=== PATIENT | female | born 1990 | race Caucasian/White ===

== ENCOUNTER 2019-02-05 15:14 | Outpatient (CLI) | payer OTHER ==
[2019-02-05 15:32] VITALS: BP 110/75
--- NOTE | 2019-02-09 22:06 | PROCEDURE REPORT ---
- HPI Diagnosis/Indication for NST: Polyhydramnios Current EDU 03/17/19 Gestation 34 Weeks and 2 Days 1 Para 0 Vital Signs Temperature 98.1 F 02/05/19 15:23 Heart Rate 90 02/05/19 15:23 Respiratory Rate 17 02/05/19 15:23 Blood Pressure 110/75 02/05/19 15:23 O2 Saturation 100 02/05/19 15:23 Temperature 98.1 F 02/05/19 15:23 Heart Rate 90 02/05/19 15:23 Respiratory Rate 17 02/05/19 15:23 Blood Pressure 110/75 02/05/19 15:23 O2 Saturation 100 02/05/19 15:23 - NST Procedure NST Procedure Start Date 02/05/19 Start Time 15:28 Stop Time 15:54 Vibroacoustic Stimulation Used No Patient States Movement Yes EFM 115 mod thang 15x15 accels no decels TOCO: quiet - Results and Plan Findings/Impression: 28 yo at 34w1d wth polyhydramnios Cat I tracing Warning signs reviewed Cont twice weekly NST and weekly AF as per primary OB
== END 2019-02-05 16:00 | disposition home or self-care (01) ==
LOC: WFO 15:14 → FBP 15:20 → WFO 16:00
PROVIDERS: ATTEND Obstetrics & Gynecology
DX: O40.3XX0 Polyhydramnios, third trimester, not applicable or unspecified (principal); Z3A.34 34 weeks gestation of pregnancy
CPT/HCPCS: 59025

== ENCOUNTER 2019-02-17 20:55 | Outpatient (CLI) | payer OTHER ==
[2019-02-17 21:09] VITALS: BP 130/86
[2019-02-17 22:29] LABS: BILIRUBIN,URINE NEGATIVE (NEGATIVE); GLUCOSE, URINE (UA) NEGATIVE (NEGATIVE); KETONES,URINE (UA) TRACE mg/dL (NEGATIVE); LEUKOCYTE ESTERASE, URINE NEGATIVE (NEGATIVE); NITRITE,URINE NEGATIVE (NEGATIVE); OCCULT BLOOD,URINE NEGATIVE (NEGATIVE); PH,URINE 5.5 PH (5.0-7.5); PROTEIN,URINE NEGATIVE (NEGATIVE); UROBILINOGEN,URINE 0.2 (NORMAL) E.U./dL (NORMAL)
[2019-02-17 22:31] LABS: CLARITY,URINE CLEAR (CLEAR)
[2019-02-17] MEDS ORDERED: BETAMETHASONE 30 MG/5 ML VIAL IM ONE (23:54)
[2019-02-18 00:16] LABS: CANDIDA GROUP DNA NEGATIVE (NEGATIVE); CANDIDA KRUSEI DNA NEGATIVE (NEGATIVE); TRICHOMONAS VAGINALIS DNA NEGATIVE (NEGATIVE)
[2019-02-18] MEDS ORDERED: BETAMETHASONE 30 MG/5 ML VIAL ONE (00:20)
[2019-02-18 01:23] LABS: TRICHOMONAS VAGINALIS DNA NEGATIVE (NEGATIVE)
--- NOTE | 2019-02-23 22:37 | PROCEDURE REPORT ---
- HPI Diagnosis/Indication for NST: Polyhydramnios Current EDU 03/17/19 Gestation 36 Weeks and 0 Days 1 Para 0 Vital Signs Temperature 98.2 F 02/17/19 21:06 Heart Rate 120 H 02/17/19 21:06 Respiratory Rate 16 02/17/19 21:06 Blood Pressure 130/86 H 02/17/19 21:06 O2 Saturation 99 02/17/19 21:06 Temperature 98.2 F 02/17/19 21:06 Heart Rate 120 H 02/17/19 21:06 Respiratory Rate 16 02/17/19 21:06 Blood Pressure 130/86 H 02/17/19 21:06 O2 Saturation 99 02/17/19 21:06 - NST Procedure NST Procedure Start Time 15:28 Stop Time 15:54 EFM 115 moderate variability 15 x 15 accelerations no decelerations [place]: irritable - Results and Plan Findings/Impression: 28-year-old G1, P0 at 36 weeks and 1 day estimated gestational age here for NST for polyhydramnios Category 1 tracing Continue with twice-weekly NST and weekly HAWK as per primary OB plan. Discharged home
== END 2019-02-18 00:31 | disposition home or self-care (01) ==
LOC: WFO 20:55 → FBP 20:57 → WFO 02-18 00:31
PROVIDERS: ATTEND Obstetrics & Gynecology
DX: O40.3XX0 Polyhydramnios, third trimester, not applicable or unspecified (principal); Z3A.36 36 weeks gestation of pregnancy
CPT/HCPCS: 81001; 81003; 82731; 87081; 87086; 87491; 87591; 87661; 87797; 87801; 96372; 99214

== ENCOUNTER 2019-02-19 09:54 | Outpatient (CLI) | payer OTHER ==
[2019-02-19 10:08] VITALS: BP 97/66
--- NOTE | 2019-03-12 11:19 | PROCEDURE REPORT ---
- HPI Diagnosis/Indication for NST: Polyhydramnios Current EDU 03/17/19 Gestation 36 Weeks and 2 Days 1 Para 0 Vital Signs Temperature 36.9 C 02/19/19 10:06 Heart Rate 93 02/19/19 10:06 Respiratory Rate 18 02/19/19 10:06 Blood Pressure 97/66 02/19/19 10:06 O2 Saturation 100 02/19/19 10:06 Temperature 36.9 C 02/19/19 10:06 Heart Rate 93 02/19/19 10:06 Respiratory Rate 18 02/19/19 10:06 Blood Pressure 97/66 02/19/19 10:06 O2 Saturation 100 02/19/19 10:06 - NST Procedure NST Procedure Start Date 02/19/19 Start Time 10:05 Stop Time 10:32 Vibroacoustic Stimulation Used No Patient States Movement Yes - Results and Plan Findings/Impression: reactive NST Plan: followup NSTweekly
== END 2019-02-19 10:40 | disposition home or self-care (01) ==
LOC: WFO 09:54 → FBP 09:59 → WFO 10:40
PROVIDERS: ATTEND Obstetrics & Gynecology
DX: O40.3XX0 Polyhydramnios, third trimester, not applicable or unspecified (principal); Z3A.36 36 weeks gestation of pregnancy
CPT/HCPCS: 59025

== ENCOUNTER 2019-02-24 13:35 | Outpatient (CLI) | payer OTHER ==
[2019-02-24 13:59] VITALS: BP 107/81
--- NOTE | 2019-03-05 21:53 | PROCEDURE REPORT ---
- HPI Current EDU 03/17/19 Gestation 37 Weeks and 0 Days 1 Para 0 Vital Signs Temperature 37 C 02/24/19 13:56 Heart Rate 108 H 02/24/19 13:56 Respiratory Rate 16 02/24/19 13:56 Blood Pressure 107/81 H 02/24/19 13:56 O2 Saturation 100 02/24/19 13:56 Temperature 37 C 02/24/19 13:56 Heart Rate 108 H 02/24/19 13:56 Respiratory Rate 16 02/24/19 13:56 Blood Pressure 107/81 H 02/24/19 13:56 O2 Saturation 100 02/24/19 13:56 - NST Procedure NST Procedure Start Date 02/24/19 Start Time 13:50 Stop Time 14:20 Vibroacoustic Stimulation Used No Patient States Movement Yes - Results and Plan Findings/Impression: reactve NST polyhydramnios Plan: Followup PRN
== END 2019-02-24 14:20 | disposition home or self-care (01) ==
LOC: WFO 13:35 → FBP 13:40 → WFO 14:20
PROVIDERS: ATTEND Obstetrics & Gynecology
DX: O40.3XX0 Polyhydramnios, third trimester, not applicable or unspecified (principal); Z3A.37 37 weeks gestation of pregnancy
CPT/HCPCS: 59025

== ENCOUNTER 2019-03-03 13:54 | Outpatient (CLI) | payer OTHER ==
[2019-03-03 14:16] VITALS: BP 106/69
--- NOTE | 2019-03-12 11:23 | PROCEDURE REPORT ---
- HPI Diagnosis/Indication for NST: Polyhydramnios (reactive NST repeat 1 week.) Current EDU 03/17/19 Gestation 38 Weeks and 0 Days 1 Para 0 Vital Signs Temperature 37 C 03/03/19 14:02 Heart Rate 95 03/03/19 14:02 Respiratory Rate 20 03/03/19 14:02 Blood Pressure 106/69 03/03/19 14:02 O2 Saturation 100 03/03/19 14:02 Temperature 37 C 03/03/19 14:02 Heart Rate 95 03/03/19 14:02 Respiratory Rate 03/03/19 14:02 Blood Pressure 106/69 03/03/19 14:02 O2 Saturation 100 03/03/19 14:02 - NST Procedure NST Procedure Start Date 03/03/19 Start Time 14:02 Stop Time 14:26 Vibroacoustic Stimulation Used No Patient States Movement Yes reactive
== END 2019-03-03 14:29 | disposition home or self-care (01) ==
LOC: WFO 13:54 → FBP 13:56 → WFO 14:29
PROVIDERS: ATTEND Obstetrics & Gynecology
DX: O40.3XX0 Polyhydramnios, third trimester, not applicable or unspecified (principal); Z3A.38 38 weeks gestation of pregnancy
CPT/HCPCS: 59025

== ENCOUNTER 2019-03-09 14:02 | Outpatient (CLI) | payer OTHER ==
[2019-03-09 14:26] VITALS: BP 100/70
--- NOTE | 2019-03-09 15:08 | PROCEDURE REPORT ---
- HPI Current EDU 03/17/19 Gestation 38 Weeks and 6 Days 1 Para 0 Vital Signs Temperature 36.9 C 03/09/19 14:23 Heart Rate 112 H 03/09/19 14:23 Respiratory Rate 15 03/09/19 14:23 Blood Pressure 100/70 03/09/19 14:23 O2 Saturation 98 03/09/19 14:23 Temperature 36.9 C 03/09/19 14:23 Heart Rate 112 H 03/09/19 14:23 Respiratory Rate 15 03/09/19 14:23 Blood Pressure 100/70 03/09/19 14:23 O2 Saturation 98 03/09/19 14:23 The patient comes in today for her nonstress test for polyhydramnios. She is without any Complaints. - NST Procedure NST Procedure Start Date 03/09/19 Start Time 14:15 Stop Time 14:26 Vibroacoustic Stimulation Used No Patient States Movement Yes The NST is reactive. This test is read on 03/09/2019. - Results and Plan Findings/Impression: Intrauterine at 38 weeks 6 days gestation Polyhydramnios Plan the patient is being discharged home. She is going to follow-up in the office later today.
== END 2019-03-09 14:55 | disposition home or self-care (01) ==
LOC: WFO 14:02 → FBP 14:06 → WFO 14:55
PROVIDERS: ATTEND Obstetrics & Gynecology
DX: O40.3XX0 Polyhydramnios, third trimester, not applicable or unspecified (principal); Z3A.38 38 weeks gestation of pregnancy
CPT/HCPCS: 59025

== ENCOUNTER 2019-03-13 13:50 | Inpatient (IN) | payer OTHER ==
--- NOTE | 2019-03-13 15:15 | HISTORY & PHYSICAL EXAMINATION ---
Admit History - Visit Reason Visit Reason: Other (Polyhydramnios) - Smoking Status: Never smoker - Mother's Labs Mother's Blood Type: positive: O Mother's RH: positive: Positive GBS: positive: Group B Strep Positive Rubella Status: positive: Immune - Other Maternal History Other Maternal History: Chief complaint intrauterine at 39 weeks 3 days gestation to polyhydramnios History chief complaint: The patient is a well-developed, well-nourished, 28-year-old white female who is 1 para 0. She has an GUERLINE of 03/17/2019 making her approximately 39 weeks and 3 days gestation.She transferred [facility] 02[facility]2019 at approximately 34 weeks gestation. She was known to have polyhydramnios. She has been followed with serial NSTsAll of which have been within normal limits. Because of the polyhydramnios was felt that she should be induced between 39 and 40 weeks gestation. We reviewed the risks, benefits, alternatives and complications of the procedure. Questions encouraged and answered, she understood and wished to do this.Her consents were then signed. She is blood type O+, she is rubella immune and GBS positive. She will need antibiotic prophylaxis when she goes into active labor.She denies any self or family history of breast disease and does plan to breast-feed. Meds/Allgy - Home Medications Home Medications: Ambulatory Orders Medication Instructions Recorded Confirmed Hydrocodone/Acetaminophen 1 each PO Q6H PRN #10 tablet 01/10/15 [Hydrocodon-Acetaminophen 5-325] - Allergies Allergies/Adverse Reactions: Allergies Allergy/AdvReac Type Severity Reaction Status Date / Time No Known Drug Allergies Allergy Verified 12/21/14 08:19 Review of Systems - Constitutional Constitutional: denies: Fatigue, Fever, Chills, Malaise, Weakness, Poor appetite, Diaphoresis - Eyes Eyes: denies: Pain, Irritation, Amaurosis, Blurred vision, Field loss, Vision loss - Ears, Nose & Throat Ears, Nose & Throat: denies: Ear pain, Hearing loss, Hearing aids, Tinnitus, Vertigo, Nasal pain, Nasal discharge, Nosebleeds, Nasal obstruction, Nasal congestion, Dentures, Sore throat, Hoarseness, Mouth lesions - Cardiovascular Cariovascular: denies: Irregular heart rate, Palpitations, Chest pain, Edema, Lightheadedness, Syncope - Respiratory Respiratory: denies: Cough, Sputum production, Wheezing, Snoring, Hemoptysis, Orthopnea, SOB at rest - Gastrointestinal Gastrointestinal: denies: Abdominal pain, Abdominal distention, Constipation, Diarrhea, Change in bowel habits, Rectal bleeding, Black stools, Nausea, Vomiting - Genitourinary Genitourinary: denies: Dysuria, Frequency, Urgency, Hematuria, Incontinence, Flank pain - Musculoskeletal Musculoskeletal: denies: Muscle pain, Muscle aches, Stiffness, Muscle weakness, Gout - Integumentary Integumentary: denies: Rash, Pruritis, Lesions, Dryness, Lumps, Acne, Pigment changes, Nail changes, Hair changes - Neurological Neurological: denies: General weakness, Focal weakness, Headache, Numbness, Memory problems, Seizures - Psychiatric Psychiatric: denies: Depression, Anxiety, Suicidal, Delusions, Hallucinations - Endocrine Endocrine: denies: Polyuria, Polydypsia, Polyphagia, Intolerance to cold, Intolerance to heat - Hematologic/Lymphatic Hematologic/Lymphatic: denies: Anemia, Bruising, Petechiae, Blood clots, Lymphadenopathy Plan for Labor - Plan For Labor Plan for Labor: Impression: 1. Intrauterine at 39 weeks 3 days gestation 2. Polyhydramnios Plan: The patient is being admitted for Cytotec induction of labor. Since she is GBS positive when she is in active labor we will start antibiotic prophylaxis. We will continue to follow her closely.
[2019-03-13 15:43] LABS: BASOPHILS % (AUTO) 0.3 %; EOSINOPHILS % (AUTO) 0.2 %; HGB - HEMOGLOBIN 10.5 g/dL (12.0-16.0); LYMPHOCYTES % (AUTO) 15.9 %; MEAN CORPUSCULAR HEMOGLOBIN 28.6 pg (27.0-31.0); MEAN CORPUSCULAR HGB CONC 32.9 g/dL (32.0-36.0); MEAN CORPUSCULAR VOLUME 86.9 fL (81.0-99.0); MEAN PLATELET VOLUME 11.3 fL (7.9-10.8); MONOCYTES # (AUTO) 0.8 10^3/uL (0.0-1.0); MONOCYTES % (AUTO) 6.3 %; NEUTROPHILS # (AUTO) 9.6 10^3/uL (1.5-6.6); NEUTROPHILS % (AUTO) 76.3 %; PLT - PLATELET COUNT 288 10^3/uL (130-450); RED BLOOD COUNT 3.67 10^6/uL (4.20-5.40); RED CELL DISTRIBUTION WIDTH 12.9 % (12.0-15.0); WHITE BLOOD COUNT 12.6 x10^3/uL (4.8-10.8)
[2019-03-13] MEDS: miSOPROStol 100 MCG TABLET BC SCH ×2 (15:48→19:48)
[2019-03-13] MEDS ORDERED: SODIUM CHLORIDE FLUSH 0.9% 10 ML SYRINGE IVP SCH (17:00)
[2019-03-13] MEDS: SODIUM CHLORIDE FLUSH 0.9% 10 ML SYRINGE IVP PRN (21:19)
--- NOTE | 2019-03-14 00:40 | Ultrasound Report ---
Reason: Polyhydramnios, suspected macrosomia Procedure Date: 03/12/2019 Accession Number: [id number] / [id number] Procedure: US - OB F/U or Repeat CPT Code: FULL RESULT: EXAM: FOLLOW-UP OBSTETRICAL ULTRASOUND EXAM DATE: 03/13/2019 11:28 PM. CLINICAL HISTORY: Polyhydramnios, suspected macrosomia. COMPARISON: None. TECHNIQUE: Real-time sonographic evaluation of the fetus performed by the hay stacker. Multiple service support representative static images were saved for review. DATING: Established EGA 39 weeks 3 days with GUERLINE 03/17/2019 based on LMP. EGA 39 weeks 4 days with GUERLINE 03/16/2019 based on current ultrasound. GENERAL EVALUATION [place] . Cardiac activity: 127 bpm. movement: Visualized. Presentation: Cephalic. Placenta: Posterior fundal position. Amniotic fluid: Normal. HAWK 26.5 cm. MVP 7.5 cm. BIOMETRY Bi-Parietal Diameter (BPD): 9.3 cm, 38 weeks 0 days Head Circumference (HC): 35.6 cm, 41 weeks 5 days Abdominal Circumference (AC): 36.7 cm, 40 weeks 4 days Femur Length (FL): 7.5 cm, 38 weeks 1 day Estimated Weight: 3919 g, 81.7 percentile.. IMPRESSION: 1. [place] live intrauterine with gestational age 39 weeks 3 days based on current ultrasound. 2. Estimated weight is within expected limits for assigned dating. 3. Polyhydramnios. RADIA
[2019-03-14] MEDS: miSOPROStol 100 MCG TABLET BC SCH ×2 (01:15→12:39)
[2019-03-14] MEDS: LACTATED RINGERS 1,000 ML IV SCH ×3 (04:45→21:36)
--- NOTE | 2019-03-14 09:43 | PROVIDER PROGRESS NOTE ---
Labor Progress Note - Labor Progress Note Labor Progress Note/Additional Text: The patient has had 3 doses of misoprostol.She is gabriel moderately every 2 to 3 minutes. There is a category 1 EFM noted. A check of her cervix this morning reveals it to be mid anterior, 2 cm dilated, -2, 50%.She is making expected changes. We will start her antibiotic prophylaxis at this time.We will recheck her in a few hours and continue to follow her closely.It is of note that her ultrasound last night revealed her HAWK to be 26.5. The estimated body weight was 3919 g which places the fetus at the 81.7 percentile.
[2019-03-14] MEDS ORDERED: AMPICILLIN 2 GM in SODIUM CHLORIDE 0.9% MINIBAG 100 ML IV SCH (10:00)
[2019-03-14] MEDS ORDERED: SODIUM CHLORIDE FLUSH 0.9% 10 ML SYRINGE ONE (10:11)
--- NOTE | 2019-03-14 12:40 | PROVIDER PROGRESS NOTE ---
Labor Progress Note - Labor Progress Note Labor Progress Note/Additional Text: The patient cervix now remains unchanged from her last exam.Her contractions though moderate to firm are now spacing out. We will therefore administer another dose of misoprostol.A category 1 EFM is still noted.Once her cervix opens up enough to safely employ an amniotomy we will try to accomplish that.We will continue to follow her closely.
[2019-03-14] MEDS: AMPICILLIN 1 GM in SODIUM CHLORIDE 0.9% MINIBAG 100 ML IV SCH ×3 (14:16→22:45)
[2019-03-14] MEDS: SODIUM CHLORIDE FLUSH 0.9% 10 ML SYRINGE IVP PRN (14:17)
--- NOTE | 2019-03-14 16:18 | PROVIDER PROGRESS NOTE ---
Labor Progress Note - Labor Progress Note Labor Progress Note/Additional Text: The patient cervix is now 2 to 3 cm. It is soft and it is mid anterior. It is now 75% effaced the fetus is at a -2 to -1 station. There is a category 1 EFM noted. She had been given an additional dose of misoprostol around the noon hour. Her contractions again have picked up. She is now gabriel every 2 to 3 minutes they are firm. An amniotomy was performed with return of a large amount of clear fluid. We will continue to follow her closely.
[2019-03-14] MEDS ORDERED: SODIUM CHLORIDE FLUSH 0.9% 10 ML SYRINGE IVP PRN (16:21)
[2019-03-14] MEDS ORDERED: NALBUPHINE 10 MG/ML AMP IVP PRN ×2 (16:25→20:09)
[2019-03-14] MEDS ORDERED: LACTATED RINGERS 1,000 ML IV SCH (17:00)
[2019-03-14] MEDS ORDERED: SODIUM CHLORIDE FLUSH 0.9% 10 ML SYRINGE IVP SCH (17:00)
[2019-03-14] MEDS ORDERED: fentaNYL 250 MCG/5 ML VIAL ONE (19:34)
[2019-03-14] MEDS ORDERED: ROPIVACAINE 0.2% 200 MG/100 ML BAG EP ONE (19:35)
[2019-03-14] MEDS ORDERED: fentaNYL 100 MCG/2 ML VIAL ONE (19:37)
[2019-03-14] MEDS ORDERED: ROPIVACAINE 0.2% 200 MG/100 ML BAG EP PRN (20:07)
[2019-03-14] MEDS ORDERED: METOCLOPRAMIDE 10 MG/2 ML VIAL IVP PRN (20:09)
[2019-03-14] MEDS ORDERED: ePHEDrine 50 MG/ML VIAL IVP PRN (20:09)
[2019-03-14] MEDS ORDERED: diphenhydrAMINE INJ 50 MG/ML VIAL IVP PRN (20:09)
[2019-03-14] MEDS ORDERED: LACTATED RINGERS 500 ML IV ONE (20:09)
[2019-03-14] MEDS ORDERED: NALOXONE 0.4 MG/ML VIAL IVP PRN (20:09)
[2019-03-14] MEDS ORDERED: ONDANSETRON 4 MG/2 ML VIAL IVP PRN (20:09)
--- NOTE | 2019-03-14 20:13 | ANESTHESIA ---
Pre-Anesthesia VS, & Labs - Diagnosis Active labor - Procedure Continuous labor epidural Vital Signs: Temp Pulse Resp BP Pulse Ox 36.6 C 106 H 18 120/76 100 03/13/19 14:02 03/13/19 14:02 03/13/19 14:02 03/13/19 14:02 03/13/19 14:02 Height 5 ft 6 in Weight (kg) 80.739 kg Body Mass Index 22.6 - NPO Other (ice chips) - Is Patient ?: Yes - Lab Results Current Lab Results: Laboratory Tests 03/13/19 14:30: WBC 12.6 H, RBC 3.67 L, Hgb 10.5 L, Hct 31.9 L, MCV 86.9, MCH 28.6, MCHC 32.9, RDW 12.9, Plt Count 288, MPV 11.3 H, Neut # (Auto) 9.6 H, Lymph # (Auto) 2.0, [place] # (Auto) 0.8, Eos # (Auto) 0.0, Baso # (Auto) 0.0, Absolute Nucleated RBC 0.00, Nucleated RBC % 0.0 Fish Bones: 03/13/19 14:30 Home Medications and Allergies Active Medications Lactated Ringer's (Lr) 1,000 mls @ 100 mls/hr IV .Q10H [facility] Last Infusion: 03/14/19 08:22 Dose: 0 mls/hr Ampicillin Sodium 1 gm/ Sodium (Chloride) 100 mls @ 200 mls/hr IV Q4H [facility] Last Admin: 03/14/19 18:31 Dose: 200 mls/hr Ropivacaine (Naropin 0.2%) 200 mg in 100 mls @ 10 mls/hr EP PRN PRN PRN Reason: Analgesia Misoprostol (Cytotec) 50 mcg BC Q4H [facility] Last Admin: 03/14/19 12:39 Dose: 50 mcg Nalbuphine HCl (Nubain) 5 - 10 mg IVP Q2H PRN PRN Reason: PAIN Ondansetron HCl (Zofran Inj) 4 mg IVP Q4H PRN PRN Reason: Nausea / Vomiting Sodium Chloride (Normal Saline Flush 0.9%) 10 ml IVP 0100,0900,1700 [facility] Sodium Chloride (Normal Saline Flush 0.9%) 10 ml IVP PRN PRN PRN Reason: NEEDED PER PROVIDER ORDERS Last Admin: 03/14/19 14:17 Dose: 10 ml Allergies/Adverse Reactions: Allergies Allergy/AdvReac Type Severity Reaction Status Date / Time No Known Drug Allergies Allergy Verified 12/21/14 08:19 Anes History & Medical History - Anesthetic History Anesthesia Complications: reports: No previous complications Family history of Anesthesia Complications: Denies Family history of Malignant Hyperthermia: Denies - Medical History Cardiovascular: reports: None Pulmonary: reports: None Gastrointestinal: reports: None Urinary: reports: None Neuro: reports: None Musculoskeletal: reports: None Endocrine/Autoimmune: reports: None Blood Disorders: reports: None Skin: reports: None Smoking Status: Never smoker Psychosocial: reports: No issues indicated Exam General: Alert, Oriented x3, Moderate distress Dental: WNL Mouth Opening: Greater than 4 Fingerbreadths Neck Mobility: Normal Mallampati classification: II Thyromental Distance: greater than 6 cm Respiratory: Lungs clear Cognitive Status: Within normal limits Plan Anesthesia Type: Epidural Consent for Procedure(s) Verified and Reviewed: Yes Code Status: Attempt Resuscitation ASA classification: 2-Mild systemic disease Is this case an emergency?: Yes
[2019-03-14] MEDS: ONDANSETRON 4 MG/2 ML VIAL IVP PRN (20:35)
[2019-03-14] MEDS ORDERED: OXYTOCIN/DEXTROSE 5 % 30 UNIT/500 ML BAG IV ONE (20:45)
--- NOTE | 2019-03-14 23:06 | PROVIDER PROGRESS NOTE ---
Labor Progress Note - Labor Progress Note Labor Progress Note/Additional Text: The patient cervix is now 9 cm is dilated. The fetus is at the 0 station. There is a bloody show now noted. A category 1 EFM is still appreciated. She has an epidural in place. She cannot feel any contractions nor move her legs. We will have anesthesia decrease the dose of epidural medication so that she can start just feeling the contractions so that she will be able to push with the contractions when she becomes complete.We will continue to follow her closely.
--- NOTE | 2019-03-14 23:27 | CONSULTATION NOTE ---
Consultation Report: Called in to adjust epidural rate, reduced from 10 to 7 ml/hr (new epidural solution using 0.2% ropi with 1 mcg/ml fentanyl). Patient dilated to 9 cm and unable to push.
[2019-03-15] MEDS: ONDANSETRON 4 MG/2 ML VIAL IVP PRN (00:19)
--- NOTE | 2019-03-15 02:02 | PROVIDER PROGRESS NOTE ---
Labor Progress Note - Labor Progress Note Labor Progress Note/Additional Text: The cervix is now complete with respect to dilatation. The fetus is at about a +2 station. There is still a small anterior lip noted, but this is easily moved off of the baby's head. A category 1 EFM is still noted. We will start with exp ulsatory efforts. We will continue to follow her closely.
[2019-03-15] MEDS ORDERED: OXYTOCIN/DEXTROSE 5 % 30 UNIT/500 ML BAG IV SCH (02:10)
[2019-03-15] MEDS ORDERED: CALCIUM CARBONATE CHEW 500 MG TABLET PO PRN (02:15)
--- NOTE | 2019-03-15 02:31 | PROVIDER PROGRESS NOTE ---
Labor Progress Note - Labor Progress Note Labor Progress Note/Additional Text: The patient is now been pushing for 1 hour. There is still a category 1 strip noted. Her contractions however have now spaced out and become moderate at most. We are starting some Pitocin augmentation. We will wait for her to resume pushing once the contraction strength has increased as well as their frequency.
[2019-03-15] MEDS: AMPICILLIN 1 GM in SODIUM CHLORIDE 0.9% MINIBAG 100 ML IV SCH (02:50)
[2019-03-15] MEDS ORDERED: ROPIVACAINE 0.2% 200 MG/100 ML BAG EP ONE (03:46)
[2019-03-15] MEDS: LACTATED RINGERS 1,000 ML IV SCH (04:24)
[2019-03-15] MEDS ORDERED: LIDOCAINE-MPF 1% 30 ML VIAL ONE (05:03)
[2019-03-15] MEDS ORDERED: LIDOCAINE 1% 50 ML MDV SUBQ ONE (05:05)
[2019-03-15] MEDS ORDERED: OXYTOCIN/DEXTROSE 5 % 30 UNIT/500 ML BAG IV PRN (05:11)
[2019-03-15] MEDS ORDERED: LIDOCAINE 1%-EPI 1:100000 20 ML MDV ONE (05:13)
[2019-03-15] MEDS ORDERED: HYDROCORTISONE 1% CREAM 28 GM TUBE PR PRN (05:26)
[2019-03-15] MEDS ORDERED: HYDROcod/ACETAM 5/325 MG TABLET PO PRN (05:26)
[2019-03-15] MEDS ORDERED: WITCH HAZEL/GLYCERIN 1 PAD TOP PRN (05:26)
--- NOTE | 2019-03-15 05:32 | DELIVERY NOTE ---
Delivery Note - Labor Labor: positive: Augmented by oxytocin, Other (Misoprostol induction) - Delivery Method Infant Delivery Method: positive: Spontaneous vaginal delivery - Cervical Ripening Method Cervical Ripening Method: positive: Misoprostil - Presentation Presentation: positive: Vertex, DIONICIO - left occiput anterior - Nuchal Cord Nuchal Cord: positive: Present, Reduced - Anesthetic Anesthetic: positive: Other (1% lidocaine with epinephrine) Volume: positive: 5cc - Amniotic Fluid Description Amniotic Fluid Description: positive: Clear - Episiotomy Type Episiotomy Type: positive: Midline - Suture Suture Type: positive: Chromic Suture Size: positive: 2-0 - Delivery Outcome Delivery Outcome: positive: Livebirth - [place] : positive: Bulb syringe, Stimulated, Warmed sex: positive: Male : Apgars 7 and 9 : 9 pounds 0.2 ounces 22 inches long - Cord Cord: positive: 3 vessels - Placenta Placenta: positive: Intact, Spontaneous - Estimated Blood Loss Estimated Blood Loss (in cc): 150 - Post Delivery Events Post Delivery Events: positive: No post delivery events - Delivery Comments (Free Text/Narrative) Delivery Comments (Free Text/Narrative): The patient came to [facility] late in the afternoon on 03/13/2019 for induction of labor. She was at 39 weeks and 4 days gestation. Her has been complicated with polyhydramnios. Late in the afternoon she was given a dose of misoprostol. She began some contractions. An ultrasound that night revealed amniotic fluid levels at just a little over 26 cm and estimated body weight was in the 81 percentile at a little over 3900 g.Throughout the night she was given a total total dose of 3 misoprostol's. She had come in with a closed cervix. By the a.m. her cervix was now 2 cm dilated 50% effaced and -2.She was given 1 more dose of misoprostol. By early afternoon her cervix was now 2 to 3 cm and 50% effaced and -2. An amniotomy was performed with return of a large amount of clear fluid. At that point she began having good contractions. She then followed a normal nulliparous labor curve and was actually found to be complete with respect to cervical dilatation at approximately 00 58 hours and began pushing at that time. Delivery summary: The patient initially began pushing at approximately 00 58 hours on 03/15/2019. She pushed for about an hour andThe contractions began spacing out and actually became moderate at most. A Pitocin drip was then started. Because the contractions really were inadequate and the patient was somewhat tired she was allowed to rest to wait for the contractions to increase in character and frequency. The Pitocin had to be increased to a total of 4 milliunits/min.At that point in time she was gabriel adequately. She again began with expulsatoryory efforts at approximately 04 30 hours. The fetus did become tachycardic into the 170s and then would drop again back down into normal ranges of 130s to 150s but then become tachycardic again.In approximately 0508 hrs. she delivered a viable male . This was done over a midline episiotomy. Upon delivery of the head a circum-nuchal cord x2 was noted and reduced. This was loose. The rest of the was then delivered with gentle traction and gentle expulsive Tory efforts. Upon full delivery the was somewhat floppy and was not crying and therefore the cord was doubly clamped and cut brought over to the warmer. The placenta was then delivered intact with 3 vessels at approximately 05 1100 hrs. on 03/15/2019. 30 units Pitocin IV drip were given. The uterus was actually gabriel out quite firmly. The cervix and vaginal vault were inspected and found to be intact. The episiotomy had originally been in enough size with 1% Lidocaine with epinephrine. It was now reapproximated in the usual fashion using 2-0 chromic suture and hemostasis followed. The is a viable male. After warming and stimulation he began to cry and move all of his limbs appropriately. He what he had Apgars of 7 and 9. He weighs 9 pounds 0.2 ounces and is 22 inches long.His parents have named him Bharathi Longoria.Both the and the patient were allowed to remain in the LDRP both in satisfactory condition. Estimated blood loss was 150 mL's.
[2019-03-15] MEDS ORDERED: LIDOCAINE 1%-EPI 1:100000 20 ML MDV SUBQ ONE (05:42)
[2019-03-15] MEDS: ACETAMINOPHEN 500 MG TABLET PO SCH ×3 (05:56→21:31)
[2019-03-15] MEDS: IBUPROFEN 600 MG TABLET PO SCH ×3 (05:57→19:59)
[2019-03-15] MEDS ORDERED: LACTATED RINGERS 1,000 ML IV SCH (06:00)
[2019-03-16] MEDS: IBUPROFEN 600 MG TABLET PO SCH ×2 (03:25→09:22)
[2019-03-16] MEDS: ACETAMINOPHEN 500 MG TABLET PO SCH (08:05)
--- NOTE | 2019-03-16 08:16 | PROVIDER PROGRESS NOTE ---
Subjective - Prog Note Date Prog Note Date: 03/16/19 Prog Note Time: 08:14 - Subjective Subjective: The patient is doing very well. She is without complaint. She is ambulating well and tolerating diet well. She is breast-feeding without difficulty. Lo stephen is light.She is anxious for discharge. Objective - Vital Signs/Intake & Output Vital Signs: Vital Signs x48h Temp Pulse Resp BP Pulse Ox 03/16/19 03:58 36.6 C 78 18 105/71 100 Intake & Output: Intake & Output 03/13/19 03/14/19 03/15/19 03/16/19 23:59 23:59 23:59 23:59 Intake Total 2761.667 3.017 Output Total 350 1500 Balance 2411.667 -1496.983 - Lab Results Fish Bones: 03/13/19 14:30 - Other Results/Comments Other Results/Comments: Laboratory Tests 03/13/19 14:30 WBC 12.6 H RBC 3.67 L Hgb 10.5 L Hct 31.9 L MCV 86.9 MCH 28.6 MCHC 32.9 RDW 12.9 Plt Count 288 MPV 11.3 H Neut # (Auto) 9.6 H Lymph # (Auto) 2.0 [place] # (Auto) 0.8 Eos # (Auto) 0.0 Baso # (Auto) 0.0 Absolute Nucleated RBC 0.00 Nucleated RBC % 0.0 Abdomen: The abdomen is soft, pliable and nontender. The uterus is firm and nontender 2 fingerbreadths below the umbilicus. Episiotomy: The episiotomy and is clean and dry. It is well up approximated w ithout any signs of infection. Assessment/Plan - Problem List (1) Polyhydramnios Impression: day #1: Stable Plan: It does appear that the patient is stable and doing well. She will be allowed to be discharged home. She was discharged home with written and verbal instructions which included/things as: 1. She is to forego any lifting, tampons, douching or intercourse 2. She is not to drive a car for the next 2 weeks 3. She is to call if she has temperatures greater than 100.4 or heavy vaginal bleeding 4. She we will continue to increase her fluids and continue her vitamins 5. She may use ibuprofen 600 mg p.o. 3 times daily as needed for cramping 6. As long she does well we will see in the first in 1 week for preliminary post check and in 6 weeks for full check. She will call sooner if she has problems.
[2019-03-16 08:28] VITALS: BP 115/67
--- NOTE | 2019-03-16 08:43 | DISCHARGE SUMMARY ---
Physician: Loc Armstrong DO DATE OF ADMISSION: 03/13/2019 DATE OF DISCHARGE: 03/16/2019 ADMITTING DIAGNOSES 1. Intrauterine at 39 weeks 3 days gestation. 2. Polyhydramnios. DISCHARGE DIAGNOSIS: Delivery at 39 weeks 5 days gestation. PROCEDURES PERFORMED 1. Misoprostol induction of labor with Pitocin augmentation. 2. Spontaneous assisted vaginal delivery. 3. Episiotomy with episiorrhaphy. LABORATORIES: Admit laboratories revealed WBCs of 12.6, RBCs of 3.67, hemoglobin 10.5, hematocrit 31.9 with 288 platelets. HOSPITAL COURSE: Patient was admitted in the afternoon of 03/13/2019 for induction of labor at 39 weeks' gestation due to polyhydramnios. Patient had a previous ultrasound revealing the fetus to be in the 98th percentile, and therefore another ultrasound was obtained, which revealed now the fetus to be in the 81st percentile and HAWK was at a little over 26. She was given misoprostol overnight. By the a.m. of 03/14/2019, her cervix was now dilated to 2 cm. She was given another dose of misoprostol. This was a total of 4 doses altogether. By the afternoon, her cervix was now 2-3 cm dilated, approximately 75% effaced and the fetus was in a -2 station. An amniotomy was performed at that time with return of clear fluid. At that point, she went into a good labor pattern and was found to be complete with respect to cervical dilatation at approximately 0058 hours on 03/15/2019. She went on to deliver a viable male weighing 9 pounds 0.2 ounces with Apgars of 7 and 9 at 1 and 5 minutes, respectively. They named him Bharathi Longoria. Estimated blood loss was approximately 150 mL. One is referred to the delivery note for full details. She recovered really very well throughout the day. She had delivered again early in the morning of 03/15/2019. On the a.m. of 03/16/2019, she was ambulating well, tolerating diet well. She was voiding without difficulty. She was without difficulty. She was asking for discharge. It was felt the patient was stable and could be safely discharged home. Her lochia was now light and the uterus was firm and nontender, 2 fingerbreadths below the umbilicus. The episiotomy was clean and dry and well approximated without any signs of infection. She was therefore discharged home with written and verbal instructions, which included such things as 1. She is to forego any lifting, tampons, douching or intercourse. 2. She is to report any temperatures greater than 100.4 or heavy vaginal bleeding. 3. She is not to drive a car for the next 2 weeks. 4. She is to continue her vitamins and increase her fluids. 5. She may use ibuprofen 600 mg p.o. t.i.d. for pain control. 6. She may take a shower or a tub bath. 7. As long as she does well, we will see her in the office in 1 week for an initial check and in 6 weeks for full check. She will call sooner if she has problems or questions. TD: 03/16/2019 08:28 [place]
--- NOTE | 2019-03-16 12:32 | Labor Flowsheet ---
Labor Flowsheet Datetime Report Generated by CPN: 03/16/2019 12:31 Datetime: 03/16/2019 08:14 VITAL SIGNS NBP Sys/Rupinder/Mean (mmHg): 115 : 67 : 78 Pulse: 77 LaborFlag: Antepartum Datetime: 03/15/2019 20:05 SpO2 (%): 100 Datetime: 03/15/2019 05:08 UTERINE ACTIVITY Monitor Mode: External Frequency (min): 1-2.5 Quality: Strong Duration (sec): 50-80 Pattern: Normal: <= 5 Contractions in 10 Minutes Resting Tone (Palpate): Relaxed ASSESSMENT A Monitor Mode: External US FHR Baseline Rate : 170 Variability: Moderate 6-25 bpm Accelerations: 15X15 Decelerations: Variable; Prolonged Category: Category II Datetime: 03/15/2019 05:00 TEACHING Instructional Method: Verbal Plan of Care: Plan of Care Discussed Labor/Induction: Pushing Methods Datetime: 03/15/2019 04:45 FHR Baseline Changes: Tachycardia Datetime: 03/15/2019 04:37 I/O Interventions: Crowder Discontinued Datetime: 03/15/2019 04:23 STAGE 2 Pushing: Coached on Pushing Pushing Position: Pushing Lithotomy Datetime: 03/15/2019 03:55 MEDICATIONS Pitocin (milliunits): Increased to @ 4 Datetime: 03/15/2019 03:26 Pain Assessment Comments: pt resting Datetime: 03/15/2019 02:52 Antibiotics: Ampicillin IV 1 Gm Datetime: 03/15/2019 02:28 Monitor Interventions for UA: [place] Adjusted Datetime: 03/15/2019 02:26 COMMUNICATION Communication: Provider at Bedside Provider Notified (Name): Dr. Nathaniel Communication Comments: Per provider, allow pt to labor down. Datetime: 03/15/2019 02:14 Patient Care Comments: pt vomitting Datetime: 03/15/2019 02:10 Temperature (C): 37.5 Datetime: 03/15/2019 02:07 PAIN Pain Scale: 0 Pain Presence: None/Denies Pain Type: N/A Datetime: 03/15/2019 02:00 MATERNAL ASSESSMENT Level of Consciousness: Fully Conscious Breath Sounds, Left: Clear and Equal Breath Sounds, Right: Clear and Equal Nausea/Vomiting: Present Datetime: 03/15/2019 01:03 Pushing Progress: Descent with Pushing Datetime: 03/15/2019 00:58 Effacement (%): 100 Station: 2 Exam by: DrSusi Nathaniel Vaginal Exam Comments: anterior lip; per provider have pt push now Datetime: 03/15/2019 00:16 Actions for Decelerations: Oxygen Applied; IV Bolus Oxygen Amount (LPM): 10 Oxygen Method: Face Mask Datetime: 03/15/2019 00:15 Comments: prolonged decel down to 110s for 3 minutes and returned to baseline Datetime: 03/15/2019 00:08 Patient Position/Activity: Right Lateral Datetime: 03/14/2019 23:01 VAGINAL EXAM Dilatation (cm): 9.0 Datetime: 03/14/2019 22:45 Notification Reason: Status Update; Status; Bleeding Datetime: 03/14/2019 21:55 PATIENT CARE IV/Blood Work: IV Bolus Started Datetime: 03/14/2019 21:53 Respirations: 16 Datetime: 03/14/2019 21:44 Monitor Interventions for FHR: Ultrasound Adjusted Datetime: 03/14/2019 21:37 Pain Location: Abdomen; Right Leg Datetime: 03/14/2019 21:00 Headache: Denies RUQ Epigastric Pain: Denies Datetime: 03/14/2019 20:54 ANESTHESIA Anesthesia Plans: Epidural Anesthesia Level Check: T9 Datetime: 03/14/2019 20:35 Antiemetics/Antacids: Zofran (mg) @ 4 Datetime: 03/14/2019 20:30 Unit Routine: Medications Pain Management: Epidural Datetime: 03/14/2019 20:16 Vaginal Bleeding: Normal Show Cervix, Consistency: Soft Cervix, Position: Midposition Datetime: 03/14/2019 19:43 Epidural Procedure: Cath Placed Datetime: 03/14/2019 19:30 PROCEDURE TIME OUT Procedure Verify: Correct Patient Identity; Correct Side and Site are Marked; Accurate Procedure Co nsent Form; Agreement on Procedure to be Done; Correct Patient Position; Relevant Images and Results are Properly Labeled and Displayed; Addressed Need to Administer Antibiotics or Fluids for Irrigation ; Safety Precautions Based on Patient History or Medication Use Epidural Positioning: Sitting Datetime: 03/14/2019 19:03 Anesthesia Comments: Pt requesting epidural Datetime: 03/14/2019 18:54 Pain Coping: Breathing Through Contractions Datetime: 03/14/2019 18:18 Pain Relief Measures: Pain Medication Given; Comfort Measures Medication Comments: Nitrous oxide set up, pt and family educated on use Datetime: 03/14/2019 17:44 Comfort Measures: Hot Shower/Tub/Spa Datetime: 03/14/2019 16:09 Membrane Status: Ruptured Membranes Rupture Method: Artificial Amniotic Fluid Color: Clear Datetime: 03/14/2019 13:30 Contraction Comments: toco not tracing well due to maternal position Datetime: 03/14/2019 12:40 Cervical Ripening Agents: Cytotec @ 50 Datetime: 03/14/2019 07:39 Temperature Route: Oral
== END 2019-03-16 10:45 | disposition home or self-care (01) | DRG 807 ==
LOC: WFO 13:50 → FBP 14:55 → WFO 14:57 → FBP 14:58
PROVIDERS: ADMIT Obstetrics & Gynecology; ATTEND Obstetrics & Gynecology
PROC: 10907ZC Drainage of Amniotic Fluid, Therapeutic from Products of Conception, Via Natural or Artificial Opening (ICD-10-PCS; 2019-03-14)
PROC: 10E0XZZ Delivery of Products of Conception, External Approach (ICD-10-PCS; principal; 2019-03-15)
PROC: 0W8NXZZ Division of Female Perineum, External Approach (ICD-10-PCS; 2019-03-15)
DX: O40.3XX0 Polyhydramnios, third trimester, not applicable or unspecified (principal); Z37.0 Single live birth; Z3A.39 39 weeks gestation of pregnancy; O99.824 Streptococcus B carrier state complicating childbirth; O76 Abnormality in fetal heart rate and rhythm complicating labor and delivery; O69.81X0 Labor and delivery complicated by cord around neck, without compression, not applicable or unspecified
CPT/HCPCS: 76816; 85025; A9270; J7120

== ENCOUNTER 2020-09-22 08:00 | Outpatient (CLI) | payer OTHER ==
[2020-09-22 21:34] LABS: BACTERIAL VAGINOSIS DNA NEGATIVE (NEGATIVE); CANDIDA GLABRATA DNA NEGATIVE (NEGATIVE); CANDIDA GROUP DNA POSITIVE (NEGATIVE); CANDIDA KRUSEI DNA NEGATIVE (NEGATIVE); TRICHOMONAS VAGINALIS DNA NEGATIVE (NEGATIVE)
== END 2020-09-22 23:59 | disposition home or self-care (01) ==
LOC: LAB.R 08:00
PROVIDERS: ATTEND Advanced Practice Midwife
DX: O23.599 Infection of other part of genital tract in pregnancy, unspecified trimester (principal)
CPT/HCPCS: 87661; 87801

== ENCOUNTER 2020-10-06 08:00 | Outpatient (CLI) | payer OTHER | END 2020-10-06 23:59 | disposition home or self-care (01) | LOC: LAB.R 08:00 | PROVIDERS: ATTEND Advanced Practice Midwife | DX: Z36.85 Encounter for antenatal screening for Streptococcus B (principal) | CPT/HCPCS: 87797 ==

== ENCOUNTER 2020-10-06 13:01 | Outpatient (CLI) | payer OTHER ==
--- NOTE | 2020-10-06 16:41 | Ultrasound Report ---
PROCEDURE: OB F/U or Repeat INDICATIONS: UTERINE SIZE/DATE DESCREPANCY, SUPER OF OUTSIDE/PRIOR DATING DATA: Last menstrual period (LMP): 01/22/2020. LMP-based estimated date of delivery (GUERLINE): 10/18/2020. First dating scan (date and location): None. Estimated date of delivery (GUERLINE) 10/28/2020 (provider stated) TECHNIQUE: Real-time scanning was performed of the fetus, with image documentation and biometric measurements. Endovaginal scanning: Not performed COMPARISON: None. Outside examination dated 06/02/2020 not available in PACS. FINDINGS: General: A single living intrauterine gestation is present. Presentation: Vertex Placenta: Placental position is posterior/fundal, without previa. Amniotic fluid index: 23.1 cm, 92nd percentile 150 for gestational age. Largest pocket measures 8.6 cm heart rate: 152 beats per minute. Maternal cervical canal: 4.1 cm long; normal length is 2.5 cm or more. biometrics: Biparietal diameter: 9.69 cm, 39 weeks 4 days Head circumference: 33.0 cm, 37 weeks 4 days Abdominal circumference: 36.36 cm, 40 weeks 2 days Femur length: 7 cm, 35 weeks 6 days Estimated gestational age from initial scan: 36 weeks 6 days. Composite gestational age from present scan: 38 weeks 2 days Estimated weight and percentile: 3655 g, 95th percentile Measurement variability in biometric dating: +/- 10 days from 12-20 weeks gestation, +/- 2 weeks from 20-30 weeks gestation, +/- 3 weeks at 30 weeks gestation or more. Other: Not applicable. IMPRESSION: Single living intrauterine fetus in vertex presentation. HAWK measures at the 92nd percentile. Estimated weight at the 95th percentile. Recommend clinical correlation. Reviewed by: Dyllan Rodriguez MD on 10/06/2020 4:39 PM PDT Approved by: Dyllan Rodriguez MD on 10/06/2020 4:39 PM PDT Station ID: [id number]
== END 2020-10-06 13:02 | disposition home or self-care (01) ==
LOC: DI 13:01
PROVIDERS: ATTEND Advanced Practice Midwife
DX: O26.849 Uterine size-date discrepancy, unspecified trimester (principal); Z3A.00 Weeks of gestation of pregnancy not specified; Z36.85 Encounter for antenatal screening for Streptococcus B
CPT/HCPCS: 87797

== ENCOUNTER 2020-10-13 12:49 | Outpatient (CLI) | payer OTHER ==
[2020-10-13 15:21] VITALS: BP 97/44
--- NOTE | 2020-10-14 13:54 | PROCEDURE REPORT ---
- HPI Diagnosis/Indication for NST: Polyhydramnios Current EDU 10/28/20 Gestation 37 Weeks and 6 Days 2 Para 1 Vital Signs Temperature 36.8 C 10/13/20 14:22 Heart Rate 97 10/13/20 14:22 Respiratory Rate 18 10/13/20 14:22 Blood Pressure 97/44 L 10/13/20 14:22 Temperature 36.8 C 10/13/20 14:22 Heart Rate 97 10/13/20 14:22 Respiratory Rate 18 10/13/20 14:22 Blood Pressure 97/44 L 10/13/20 14:22 O2 Saturation - NST Procedure NST Procedure Start Date 10/13/20 Start Time 12:56 Stop Time 14:13 Vibroacoustic Stimulation Used No Patient States Movement Yes - Results and Plan Findings/Impression: Kaykay is a 29yo at 37.6wks gestation who presents for NST r/t polyhydramnios US on 10/06/2020 revealed: EFW 3655g (95%tile). HAWK upper limited of normal @ 23.1 and largest pocket 8.6 which diagnoses polyhydramnios. Pt states she had polyhydramnios with her last and had a 9lb baby. Will initiate once weekly NST and BPP starting this week. Plan IOL 10/24/2020 @ 39.3wks gestation. NST perform date: 10/13/2020 NST read date: 10/13/2020 Baseline 145, moderate variability, accels 15x15 NO DECELS (this differs from clean rice grader and reel tender. RN reports variable decel, however none meet criteria) Impression: Reactive Final Diagnosis: Polyhydramnios Plan: BPP is scheduled for tomorrow Continue with routine care Continue once weekly NST and BPP starting this week. Plan IOL 10/24/2020 @ 39.3wks gestation
== END 2020-10-13 14:30 | disposition home or self-care (01) ==
LOC: WFO 12:49 → FBP 12:51 → WFO 14:30
PROVIDERS: ATTEND Advanced Practice Midwife
DX: O40.3XX0 Polyhydramnios, third trimester, not applicable or unspecified (principal); Z3A.37 37 weeks gestation of pregnancy
CPT/HCPCS: 59025; 99212

== ENCOUNTER 2020-10-16 16:30 | Outpatient (CLI) | payer OTHER ==
--- NOTE | 2020-10-16 18:52 | Ultrasound Report ---
PROCEDURE: OB Biophysical Profile INDICATIONS: POLYHYDRAMNIOS OUTSIDE/PRIOR DATING DATA: Last menstrual period (LMP): 01/22/2020. LMP-based estimated date of delivery (GUERLINE): 10/28/2021. First dating scan (date and location): 10/06/2020. Estimated date of delivery (GUERLINE) from first dating scan: 10/06/2020. TECHNIQUE: Real-time scanning was performed of the fetus, with image documentation and biometric eric surements. Biophysical profile was also obtained. Endovaginal scanning: Was not performed COMPARISON: None. FINDINGS: General: A single living intrauterine gestation is present. Presentation: Cephalic Placenta: Placental position is posterior, without previa. Amniotic fluid index: 26 cm, 98 percentile for gestational age. heart rate: 153 beats per minute. Maternal cervical canal: 4.0 cm long; normal length is 2.5 cm or more. biometrics: Not performed on today's exam. Biophysical profile: Tone: 2 points. Movement: 2 points. Respiration: 2 points. Largest pocket of fluid: 2 points. Umbilical artery Doppler: There is continuous antegrade flow. The systolic/diastolic ratio measures 2.0-2.18. The resistive indices measures 0.50-0.54 IMPRESSION: HAWK measures 26.0 cm on today's exam. Umbilical color Doppler with S/D ratio measuring 2.0-2.18 and resistive indices measuring 0.50-0.54. There is continuous antegrade flow. Biophysical profile of 01/22 Reviewed by: Von Gillette DO on 10/16/2020 5:51 PM SANTI Approved by: Von Gillette DO on 10/16/2020 5:51 PM SANTI Station ID: [id number]
== END 2020-10-16 16:31 | disposition home or self-care (01) ==
LOC: DI 16:30
PROVIDERS: ATTEND Nurse Practitioner Obstetrics & Gynecology
DX: O40.3XX0 Polyhydramnios, third trimester, not applicable or unspecified (principal); Z3A.00 Weeks of gestation of pregnancy not specified

== ENCOUNTER 2020-10-20 | Outpatient (CLI) | payer OTHER ==
--- NOTE | 2020-10-20 11:33 | PROCEDURE REPORT ---
- HPI Diagnosis/Indication for NST: Polyhydramnios Current EDU 10/28/20 Gestation 38 Weeks and 6 Days 2 Para 1 Vital Signs Temperature 98.1 F 10/20/20 09:40 Heart Rate 106 H 10/20/20 09:40 Respiratory Rate 17 10/20/20 09:40 Blood Pressure 114/68 10/20/20 09:40 O2 Saturation 100 10/20/20 09:40 Temperature 98.1 F 10/20/20 09:40 Heart Rate 106 H 10/20/20 09:40 Respiratory Rate 17 10/20/20 09:40 Blood Pressure 114/68 10/20/20 09:40 O2 Saturation 100 10/20/20 09:40 - NST Procedure NST Procedure Start Date 10/20/20 Start Time 09:33 Stop Time 09:58 Vibroacoustic Stimulation Used Yes Patient States Movement Yes - Results and Plan Findings/Impression: Baseline: BPM 135 Variability: Moderate Accelerations: Present Decelerations: Absent Trends in FHR over time: no changes [place] contractions in 10 minutes: 0 Impression: reactive Category 1 NST
== END 2020-10-20 10:02 | disposition home or self-care (01) ==
CPT/HCPCS: 59025

== ENCOUNTER 2020-10-20 11:47 | Outpatient (CLI) | payer OTHER ==
--- NOTE | 2020-10-20 16:48 | Ultrasound Report ---
PROCEDURE: OB Biophysical Profile INDICATIONS: POLYHYDRAMNIOS OUTSIDE/PRIOR DATING DATA: Last menstrual period (LMP): 01/22/2020. LMP-based estimated date of delivery (GUERLINE): 10/28/2021. Not performed TECHNIQUE: Real-time scanning was performed of the fetus, with image documentation and biometric eric surements. Biophysical profile was also obtained. COMPARISON: 10/16/2020 FINDINGS: General: A single living intrauterine gestation is present. Presentation: Vertex Placenta: Placental position is posterior, without previa. Amniotic fluid index: 31 cm, above the 99th percentile for gestational age. The largest pocket is 9 .2 cm. heart rate: 127 beats per minute. Maternal cervical canal: 4 cm long and closed; normal length is 2.5 cm or more. Biophysical profile: Tone: 2 points. Movement: 2 points. Respiration: 2 points. Largest pocket of fluid: 2 points. Umbilical artery Doppler: Cordis S/D ratios are 2.36 at the umbilicus, 2.0 at the midsegment, and 2.2 at the placental insertion. IMPRESSION: Single live intrauterine gestation with polyhydramnios; HAWK measures 31 cm on today's exam (previousl y 26 cm). Reviewed by: Juan Blanco MD on 10/20/2020 4:46 PM PDT Approved by: Juan Blanco MD on 10/20/2020 4:46 PM PDT Station ID: [id number]
== END 2020-10-20 11:48 | disposition home or self-care (01) ==
LOC: DI 11:47
PROVIDERS: ATTEND Nurse Practitioner Obstetrics & Gynecology
DX: O40.3XX0 Polyhydramnios, third trimester, not applicable or unspecified (principal)

== ENCOUNTER 2020-10-25 07:47 | Inpatient (IN) | payer OTHER ==
[2020-10-25] MEDS ORDERED: CARBOPROST TROMETHAMINE 250 MCG/ML AMP IM PRN (09:10)
[2020-10-25] MEDS ORDERED: OXYTOCIN/SODIUM CHLORIDE 500 ML IV PRN (09:10)
[2020-10-25] MEDS ORDERED: METOCLOPRAMIDE 10 MG TABLET PO PRN (09:10)
[2020-10-25] MEDS ORDERED: SODIUM CHLORIDE FLUSH 0.9% 10 ML SYRINGE IVP PRN (09:10)
[2020-10-25] MEDS ORDERED: miSOPROStoL 200 MCG TABLET BC PRN (09:10)
[2020-10-25] MEDS ORDERED: LIDOCAINE-MPF 1% 30 ML VIAL ID PRN (09:10)
[2020-10-25] MEDS ORDERED: ONDANSETRON 4 MG/2 ML VIAL IVP PRN ×2 (09:10→20:03)
[2020-10-25] MEDS ORDERED: ONDANSETRON ODT 4 MG TABLET TL PRN (09:10)
[2020-10-25] MEDS ORDERED: METOCLOPRAMIDE 10 MG/2 ML VIAL IVP PRN ×2 (09:10→20:03)
[2020-10-25] MEDS ORDERED: TRANEXAMIC ACID IN NACL 1,000 MG/100 ML BAG IV PRN (09:10)
[2020-10-25] MEDS ORDERED: AMPICILLIN 2 GM in SODIUM CHLORIDE 0.9% MINIBAG 100 ML IV ONE (09:10)
[2020-10-25] MEDS ORDERED: OXYTOCIN 10 UNIT/ML VIAL IM PRN (09:10)
[2020-10-25] MEDS ORDERED: METHYLERGONOVINE 0.2 MG/ML VIAL IM PRN (09:10)
--- NOTE | 2020-10-25 09:29 | HISTORY & PHYSICAL EXAMINATION ---
Admit History - Visit Reason Visit Reason: Other (Induction of Labor) - : 2 Parity: 1 Premature: 0 Ectopic: 0 : 0 Care: positive: Other ([facility]) Risk/History: positive: Polyhydramnios, Other (Suspected macrosomia) Complications This : positive: None Smoking Status: Never smoker - Mother's Labs Mother's Blood Type: positive: O Mother's RH: positive: Positive GBS: positive: Group B Strep Positive Rubella Status: positive: Immune - Other Maternal History Other Maternal History: -29 yo at 39.4 wks gestation who presents to Labor and Delivery for pre- induction cervical ripening due to suspected macrosomia and polyhydramnios. -Reports movement -Denies ctx/VB/LOF - care with [facility] which has been adequate after daksha at 32.3wks - Complications *Suspected macrosomia * Polyhydramnios- HAWK 31 *GBS positive -Dating Criteria *Initial U/S: at [facility] at 9.6wks c/w LMP for GUERLINE 10/28/2020 -OB Hx *G1: 2019. 39.5wks Male: Gregorio. Polyhydramnios. -Medications * vitamin-daily *Fe- 325mg daily -Allergies *NKDA -Medical History *Non contributory -Surgical History *None -Family History *Non contributory -Social History *Non contributory - Labs, Immunizations, and Findings Initial U/S: at [facility] at 9.6wks c/w LMP for GUERLINE 10/28/2020 O pos/Rubella immune VZV- immune HEP B- equivocal offer series pp Gentic testing: Serum Int- neg, SMA-neg FAS: Posterior placenta. 3VC. HAWK wnl. EFW 41%. Poor view of cardiac outflow tracts and umbilical cord insertion f/u wnl Glucola: 65(early) repeat 76 Flu: "encouraged" per [facility] TDAP: 08/04/2020 GBS at 36.6 weeks - positive HSV: denies self and partner Breast pump Rx : 08/04/2020 MOD: . Husb: [place]. son Gregorio. Baby BOY: Ernesto pp contraception: Mirena PAP: 10/24/2017- nilm -SVE 08/11/ballotable/mod/mid -Vertex by BSUS -EFW by vicky's 9.5# - Physical Exam: Normocephalic, atraumatic Heart RRR w/o murmur Lungs clear and equal bilaterally Abdomen gravid, soft, nontender Edema- none Psych- wnl -FHTs per flowsheet -Assessment *29yo at 39.4wks gestation present for IOL r/t suspected macrosomia and polyhydramnios *Allen Score 3- requires cervical ripening * Heart Tones- Category I -Plan *Admit to OBS(until active labor, SROM, AROM, epidural, or pitocin) *Cervical ripening with Misoprostol *Monitoring- Continuous *Comfort measures available- position changes, whirlpool tub, fentanyl, and epidural per maternal preference *Diet/Activity- per maternal preference *Anticipate Meds/Allgy - Home Medications Home Medications: Ambulatory Orders Medication Instructions Recorded Confirmed Hydrocodone/Acetaminophen 1 each PO Q6H PRN #10 tablet 01/10/15 [Hydrocodon-Acetaminophen 5-325] - Allergies Allergies/Adverse Reactions: Allergies Allergy/AdvReac Type Severity Reaction Status Date / Time No Known Drug Allergies Allergy Verified 12/21/14 08:19 Review of Systems - All Other Systems All Other Systems: reports: Reviewed and negative Physical - Abdominal Exam Contraction Frequency (min/apart): irregular Contraction Intensity: positive: Mild Uterine Resting Tone: positive: Soft - Monitoring Heart Rate Baseline: 140 Strip Review: positive: Category I (moderate variability, accels 15x15, no decels) - Vaginal Exam Membranes: positive: Membranes intact Dilation (in cm): 2 Effacement (%): 25 Station: positive: Ballotable Cervical Position: positive: Midposition Plan for Labor - Plan For Labor I expect patient to be DC'd or transferred within 96 hours.: Yes
[2020-10-25 09:38] LABS: BASOPHILS % (AUTO) 0.3 %; EOSINOPHILS # (AUTO) 0.1 10^3/uL (0.0-0.7); EOSINOPHILS % (AUTO) 0.6 %; HGB - HEMOGLOBIN 10.9 g/dL (12.0-16.0); LYMPHOCYTES # (AUTO) 2.6 10^3/uL (1.5-3.5); LYMPHOCYTES % (AUTO) 21.4 %; MEAN CORPUSCULAR HEMOGLOBIN 29.6 pg (27.0-31.0); MEAN CORPUSCULAR HGB CONC 34.1 g/dL (32.0-36.0); MEAN PLATELET VOLUME 11.3 fL (7.9-10.8); MONOCYTES % (AUTO) 8.1 %; NEUTROPHILS # (AUTO) 8.2 10^3/uL (1.5-6.6); NEUTROPHILS % (AUTO) 68.6 %; PLT - PLATELET COUNT 253 10^3/uL (130-450); RED BLOOD COUNT 3.68 10^6/uL (4.20-5.40); RED CELL DISTRIBUTION WIDTH 13.2 % (12.0-15.0); WHITE BLOOD COUNT 11.9 x10^3/uL (4.8-10.8)
[2020-10-25] MEDS: miSOPROStoL 100 MCG TABLET BC SCH ×2 (09:48→15:17)
[2020-10-25] MEDS: LACTATED RINGERS 1,000 ML IV SCH ×4 (09:48→23:48)
[2020-10-25] MEDS ORDERED: LACTATED RINGERS 500 ML IV ONE ×2 (09:49→13:59)
--- NOTE | 2020-10-25 16:32 | ANESTHESIA ---
Pre-Anesthesia VS, & Labs - Diagnosis active labor - Procedure labor epidural Vital Signs: Temp Pulse Resp BP Pulse Ox 36.8 C 10/25/20 07:55 Height: 5 ft 6 in Weight (kg): 82.645 kg Body Mass Index: 29.4 BMI Classification: Overweight - Is Patient ?: Yes - Lab Results Current Lab Results: Laboratory Tests 10/25/20 10:13: Blood Type Recheck O POSITIVE 10/25/20 08:55: Blood Type O POSITIVE, Antibody Screen NEGATIVE 10/25/20 08:55: WBC 11.9 H, RBC 3.68 L, Hgb 10.9 L, Hct 32.0 L, MCV 87.0, MCH 29.6, MCHC 34.1, RDW 13.2, Plt Count 253, MPV 11.3 H, Neut # (Auto) 8.2 H, Lymph # (Auto) 2.6, [place] # (Auto) 1.0, Eos # (Auto) 0.1, Baso # (Auto) 0.0, Absolute Nucleated RBC 0.00, Nucleated RBC % 0.0 Lab results reviewed: Yes Fish Bones: 10/25/20 08:55 Home Medications and Allergies Active Medications Acetaminophen (Acetaminophen 325 Mg Tablet) 650 mg PO Q6H PRN PRN Reason: Pain or Fever Carboprost Tromethamine (Carboprost Tromethamine 250 Mcg/Ml Amp) 250 mcg IM Q15M PRN PRN Reason: Step 4: Hemorrhage protocol Stop: 10/30/20 09:12 Oxytocin/Sodium Chloride (Pitocin/Sodium Chloride) 500 mls @ 999 mls/hr IV PRN PRN; Protocol PRN Reason: POST- HEMORR PREVENTION Stop: 10/30/20 09:12 Tranexamic Acid (Tranexamic 1,000 Mg/100ml-Nacl) 1,000 mg in 100 mls @ 600 mls/hr IV .ONCE PRN PRN Reason: EBL >1200mL and within 3hr Stop: 10/30/20 09:12 Lactated Ringer's (Lr) 1,000 mls @ 100 mls/hr IV .Q10H MITCHELL Last Admin: 10/25/20 09:48 Dose: 100 mls/hr Documented by: Lidocaine HCl (Lidocaine-Mpf 1% 30 Ml Vial) 30 ml ID .ONCE PRN PRN Reason: PERINEAL REPAIR Stop: 10/30/20 09:12 Methylergonovine Maleate (Methylergonovine 0.2 Mg/Ml Vial) 0.2 mg IM .ONCE PRN PRN Reason: Step 2: Hemorrhage protocol Stop: 10/30/20 09:12 Metoclopramide HCl (Metoclopramide 10 Mg Tablet) 10 mg PO Q6H PRN PRN Reason: Nausea / Vomiting Metoclopramide HCl (Metoclopramide 10 Mg/2 Ml Vial) 10 mg IVP Q6H PRN PRN Reason: Nausea / Vomiting Misoprostol (Misoprostol 200 Mcg Tablet) 800 mcg BC .ONCE PRN PRN Reason: Step 3: Hemorrhage protocol Stop: 10/30/20 09:12 Misoprostol (Misoprostol 100 Mcg Tablet) 50 mcg BC Q4HR [facility] Last Admin: 10/25/20 15:17 Dose: 50 mcg Documented by: Ondansetron HCl (Ondansetron 4 Mg/2 Ml Vial) 4 mg IVP Q4HR PRN PRN Reason: Nausea / Vomiting Ondansetron HCl (Ondansetron Odt 4 Mg Tablet) 4 mg TL Q4HR PRN PRN Reason: Nausea / Vomiting Oxytocin (Oxytocin 10 Unit/Ml Vial) 10 unit IM .ONCE PRN PRN Reason: Step one: If no IV access Stop: 10/30/20 09:12 Sodium Chloride (Sodium Chloride Flush 0.9% 10 Ml Syringe) 10 ml IVP 0100,0900,1700 [facility] Last Admin: 10/25/20 08:55 Dose: 10 ml Documented by: Sodium Chloride (Sodium Chloride Flush 0.9% 10 Ml Syringe) 10 ml IVP PRN PRN PRN Reason: NEEDED PER PROVIDER ORDERS Allergies/Adverse Reactions: Allergies Allergy/AdvReac Type Severity Reaction Status Date / Time No Known Drug Allergies Allergy Verified 12/21/14 08:19 Anes History & Medical History - Anesthetic History Anesthesia Complications: reports: No previous complications Family history of Anesthesia Complications: Denies Family history of Malignant Hyperthermia: Denies - Medical History Cardiovascular: reports: None Pulmonary: reports: None Gastrointestinal: reports: None Urinary: reports: None Neuro: reports: None Musculoskeletal: reports: None Endocrine/Autoimmune: reports: None Blood Disorders: reports: None Skin: reports: None Smoking Status: Never smoker - Obstetrical History : 2 Parity: 1 Events: reports: Polyhydramnios, Other (Suspected macrosomia) Complications: reports: None Exam General: Alert, Oriented x3, Cooperative, No acute distress Plan Anesthesia Type: Epidural Consent for Procedure(s) Verified and Reviewed: Yes Code Status: Attempt Resuscitation ASA classification: 2-Mild systemic disease Is this case an emergency?: No
[2020-10-25] MEDS ORDERED: SODIUM CHLORIDE FLUSH 0.9% 10 ML SYRINGE IVP SCH (17:00)
[2020-10-25] MEDS ORDERED: ROPIVACAINE 0.2% 200 MG/100 ML BAG EP ONE (19:11)
[2020-10-25] MEDS ORDERED: TERBUTALINE 1 MG/ML VIAL SUBQ ONE (20:02)
[2020-10-25] MEDS ORDERED: NALOXONE 0.4 MG/ML VIAL IVP PRN (20:03)
[2020-10-25] MEDS ORDERED: NALBUPHINE 10 MG/ML AMP IVP PRN (20:03)
[2020-10-25] MEDS ORDERED: ePHEDrine 50 MG/ML VIAL IVP PRN (20:03)
[2020-10-25] MEDS ORDERED: diphenhydrAMINE INJ 50 MG/ML VIAL IVP PRN (20:03)
[2020-10-25] MEDS ORDERED: ROPIVACAINE 0.2% 200 MG/100 ML BAG EP PRN (20:03)
--- NOTE | 2020-10-25 21:54 | PROVIDER PROGRESS NOTE ---
Labor Progress Note - Uterine Monitoring Uterine Monitoring Mode: positive: External toco Contraction Frequency (min/apart): 2-3 Contraction Intensity: positive: Moderate to strong Uterine Resting Tone: positive: Soft - Monitoring Monitor Mode: positive: External ultrasound Heart Rate Baseline: 135 Heart Rate Variability: positive: Moderate (6-25 bmp) Accelerations: positive: Present, 15x15 Decelerations: positive: None Strip Review: positive: Category I - Vaginal Exam Dilation (in cm): 3 Effacement (%): 50 Station: -3 - Labor Progress Note Labor Progress Note/Additional Text: 2030: S: Kaykay is now comfortable with an epidural. is supportive at bedside. O: s/p dose #2 of Miso at 1517 A: 29yo in active labor FHT reassuring Uterine contractions- adequate P: Expectant management, unless contractions decrease in frequency Anticipate SVE when SROM, or slow release of fluids when head well applied Begin ampicillin Continuous monitoring Clear fluids- per [employer] Anticipate
[2020-10-25] MEDS ORDERED: OXYTOCIN/SODIUM CHLORIDE 500 ML IV SCH (23:45)
[2020-10-26] MEDS: AMPICILLIN 1 GM in SODIUM CHLORIDE 0.9% MINIBAG 100 ML IV SCH ×3 (01:04→08:37)
[2020-10-26] MEDS ORDERED: ROPIVACAINE 0.2% PF 10 ML VIAL ONE (06:59)
--- NOTE | 2020-10-26 07:26 | ANESTHESIA PROCEDURE NOTE ---
Anesthesia Epidural Template - Patient Report Patient Reports: positive: Inadequate control - Exam : Epidural Medication Information: Epidural Medications Medication Ropivicaine Continuous Infusion Rate (mL/ 10 hr) - Other Comments Other Comments: New epidural placed at maternal request after epidural found to be pulled back. L3-4 prepped, lidocaine 1%, 3cc. MACKENZIE at 6cm, DPE with 25 ga spinal. cath threaded to 13, negative test dose at 0709. Cath secured with tegaderm, tape. Pt states her lower extremeties both going numb like during original placement. To supine after 10cc 0.2% Ropi. Pump restarted.
--- NOTE | 2020-10-26 09:05 | PROVIDER PROGRESS NOTE ---
Labor Progress Note - Uterine Monitoring Uterine Monitoring Mode: positive: External toco Contraction Frequency (min/apart): 2-4 Contraction Intensity: positive: Moderate Uterine Resting Tone: positive: Soft - Monitoring Monitor Mode: positive: External ultrasound Heart Rate Baseline: 140 Heart Rate Variability: positive: Moderate (6-25 bmp) Accelerations: positive: Present, 15x15 Decelerations: positive: None Strip Review: positive: Category I - Vaginal Exam Dilation (in cm): 3 Effacement (%): 75 Station: -3 Cervical Position: Midposition - Labor Progress Note Labor Progress Note/Additional Text: S: Kaykay had her epidural replaced this morning and reports satisfaction with her coverage at this time. She is cheerful and talkative and excited about the plan of care. O: Pitocin at 2mU/min Ampicillin infused >2 doses SVE with AROM at 0725 head originally not engaged, AROM with FSE for multiple gushes of copious amounts of clear fluid. US for position performed. Fundal pressure applied. OR open and ready. heart rate remained stable and slow descent into pelvis noted. Final station: -3. SVE after AROM 3-3.5/75%/-3/mid/soft A: 29yo at 39.5wks gestation in early active labor FHR reassuing Uterine activity- adequate P: Continue augmentation with pitocin Continuous monitoring Anticipate
[2020-10-26] MEDS ORDERED: HYDROCORTISONE 1% CREAM 28 GM TUBE PR PRN (11:45)
[2020-10-26] MEDS ORDERED: WITCH HAZEL/GLYCERIN 1 PAD TOP PRN (11:45)
[2020-10-26] MEDS: ACETAMINOPHEN 325 MG TABLET PO PRN ×2 (12:19→18:19)
[2020-10-26] MEDS: IBUPROFEN 600 MG TABLET PO SCH ×2 (12:19→18:20)
--- NOTE | 2020-10-26 14:56 | DELIVERY NOTE ---
Delivery Note - Infant Delivery Method Infant Delivery Method: positive: Spontaneous vaginal delivery - Presentation Presentation: positive: JOVI - right occiput anterior - Nuchal Cord Nuchal Cord: positive: None - Laceration Laceration: positive: Labial (left) - Suture Suture Type: positive: Vicryl Suture Size: positive: 3-0 - Delivery Outcome Delivery Outcome: positive: Livebirth - Rowlett Rowlett: positive: Placed in direct skin contact with mother, Stimulated, Roy used sex: positive: Male : 7 : 8 - Cord Cord: positive: 3 vessels - Placenta Placenta: positive: Intact, Spontaneous - Estimated Blood Loss Estimated Blood Loss (in cc): 250 - Post Delivery Events Post Delivery Events: positive: No post delivery events - Delivery Comments (Free Text/Narrative) Delivery Comments (Free Text/Narrative): Note: Labor: This 29 year old, , @39.4wks gestation by 9.6week Ultrasound, confirmed by LMP, presented on 10/25/2020 for IOL r/t polyhydramnios and suspected macrosomia. Cervix was 2/25/ballotable and vertex by BSUS. FHR pattern demonstrated 135 baseline in a Category I pattern. Miso administered x2 for cer vical ripening. Pitocin utilized for augmentation. Normal labor course. Epidural placed upon maternal request. AROM occurred @ 0725 with an FSE and amount and color of fluid were noted to be several flows of copious and clear fluid. She progressed to complete and +1 station at 1024. : Normal of a 4515g gm male infant, named Ernesto, on 10/26/2020 @ 1119. Nuchal not present. Body was slow to deliver after anterior shoulder. Baby was in JOVI position, and anterior (left) arm was assisted out and the rest of the body came after. The was placed on maternal abdomen, stimulated, dried and placed skin to skin. Apgars 7 at one minute and 8 at five minutes. The umbilical cord was allowed to stop pulsating at which time it was doubly clamped by CNM and cut by FOB. Pitocin administered via IV for hemostasis. Fundal massage and gentle cord traction applied for active third stage management. Cord blood was obtained. Placenta delivered spontaneously and intact at 1132. Three vessel cord. EBL 250mL. Fourth Stage: Uterine fundus firm and without excessive bleeding. The perineum, vagina, and cervix were inspected and found have sustained a left labial laceration. Three figure of eight sutures were performed with a 3-0 vicryl under sterile conditions in standard fashion. Vaginal examination following repair was done. Tissues well approximated. initiated. Family bonding well. Both mother and baby are in stable condition.
[2020-10-26] MEDS: DOCUSATE SODIUM 100 MG CAPSULE PO SCH (16:34)
[2020-10-27] MEDS: IBUPROFEN 600 MG TABLET PO SCH ×2 (00:43→08:00)
[2020-10-27] MEDS: ACETAMINOPHEN 325 MG TABLET PO PRN ×2 (00:44→08:00)
[2020-10-27] MEDS: DOCUSATE SODIUM 100 MG CAPSULE PO SCH (08:00)
--- NOTE | 2020-10-27 09:56 | PROVIDER PROGRESS NOTE ---
Subjective - Prog Note Date Prog Note Date: 10/27/20 Prog Note Time: 09:54 - Subjective Pt reports feeling: Improved Subjective: S: Kaykay is resting in bed and baby is swaddled and asleep in the bassinet. She reports as going well, and her bleeding as a light to moderate period. She feels she is healing well and her sutures only feel a tugging sensation if she moves "just right." Her pain is well managed with PO pain meds O: lochia rubra fundus firm A: 29yo s/p on pp day 1 Normal recovery P: Continue with routine care Evaluate for discharge home Objective - Vital Signs/Intake & Output Vital Signs: Vital Signs x48h Temp Pulse Resp BP Pulse Ox 10/27/20 09:05 36.9 C 72 18 111/72 99 10/27/20 05:20 36.6 C 73 16 107/66 100 Intake & Output: Intake & Output 10/24/20 10/25/20 10/26/20 10/27/20 23:59 23:59 23:59 23:59 Intake Total 928.333 200 Output Total 1475 Balance 928.296 -4152 - Lab Results Fish Bones: 10/25/20 08:55
--- NOTE | 2020-10-27 11:14 | DISCHARGE SUMMARY ---
Discharge Summary - [facility] History of Present Illness: Admit Date 10/25/2020 Discharge Date 10/27/2020 Diagnosis on Admission: 1. A 29yo at 39.4 week intrauterine 2. Polyhydramnios 3. Suspected Macrosomia Diagnosis on Discharge 1. A 29yo s/p spontaneous vaginal delivery on 10/26/2020 2. Normal recovery 3. LGA baby Brief History: She is a patient at [facility] who presented on 10/25/2020 with complaints of contractions. The patient was found to contract every 1 to 5 minutes and her cervix was 2cm dilated, 25%effaced, and -ballotable. She as augmented with pitocin and spontaneously delivered a viable male named Ernesto who weighed 9#15oz. Apgars were 7 and 8- and 1 and 5 minutes respectively. EBL 250mL. The patient has a 1st degree laceration that was repaired with 3-0 vicryl in usual fashion under sterile conditions. She has been doing well in her course. She is ambulating and tolerating a regular diet. She is urinating without difficulty and her lochia is normal. Her pain is well controlled with oral medications. She will be dis charged home today on day # 1 without need for prescriptions. She intends to follow up with Midwifery at [facility] in 1, and 6 weeks for routine visit. She has been given precautions to call if she has any worsening fevers, chills, abdominal pain, increased bleeding or foul smelling vaginal lochia. - ALLERGIES Allergies/Adverse Reactions: Allergies Allergy/AdvReac Type Severity Reaction Status Date / Time No Known Drug Allergies Allergy Verified 12/21/14 08:19 - MEDICATIONS Home Medications: Ambulatory Orders Medication Instructions Recorded Confirmed Hydrocodone/Acetaminophen 1 each PO Q6H PRN #10 tablet 01/10/15 [Hydrocodon-Acetaminophen 5-325] - LABS Result Diagrams: 10/25/20 08:55
[2020-10-27 12:53] VITALS: BP 106/64
--- NOTE | 2020-10-27 14:37 | Labor Flowsheet ---
Labor Flowsheet Datetime Report Generated by CPN: 10/27/2020 14:36 Datetime: 10/26/2020 14:30 VITAL SIGNS NBP Sys/Rupinder/Mean (mmHg): 116 : 81 : 89 Pulse: 83 Datetime: 10/26/2020 12:45 Stage of : Recovery Datetime: 10/26/2020 12:15 SpO2 (%): 100 Datetime: 10/26/2020 12:10 PAIN Pain Scale: 6 Pain Presence: Constant Pain Type: Sharp Pain Location: Left Groin Pain Goal: 5 Datetime: 10/26/2020 11:50 Respirations: 15 Temperature (C): 36.7 Temperature Route: Oral Datetime: 10/26/2020 11:18 Comments: Interrupted strip, patient pushing. FHT's 150's with audible decels 85-110's, with recov dimas of FHT's after pushing Datetime: 10/26/2020 11:00 LaborFlag: Labor Datetime: 10/26/2020 10:45 UTERINE ACTIVITY Monitor Mode: External Frequency (min): 2-3.5 Quality: Strong Duration (sec): 80-110 Pattern: Normal: <= 5 Contractions in 10 Minutes Resting Tone (Palpate): Relaxed ASSESSMENT A Monitor Mode: External US FHR Baseline Rate : 135 Variability: Moderate 6-25 bpm Accelerations: 15X15 Decelerations: None Category: Category I Datetime: 10/26/2020 10:30 Contraction Comments: Involuntary pushing Monitor Interventions for FHR: Ultrasound Adjusted Datetime: 10/26/2020 10:28 COMMUNICATION Communication: Call/Page Placed to Provider Provider Notified (Name): H. Chadd Notification Reason: Status Update; Labor Status Communication Comments: Provider OTW Datetime: 10/26/2020 10:24 VAGINAL EXAM Dilatation (cm): 10.0 Effacement (%): 100 Station: 1 Exam by: S. Randy, RN Datetime: 10/26/2020 09:00 FHR Baseline Changes: No Baseline Change Datetime: 10/26/2020 08:37 Antibiotics: Ampicillin IV 1 Gm Datetime: 10/26/2020 08:36 Antiemetics/Antacids: Zofran (mg) @ 4 Datetime: 10/26/2020 07:38 Patient Position/Activity: High Fowlers Patient Care Comments: Throne Position Datetime: 10/26/2020 07:25 Membrane Status: Ruptured Membranes Rupture Method: Artificial Amniotic Fluid Color: Clear Amniotic Fluid Amount: Copious Amniotic Fluid Odor: Normal Membrane Comments: Colt Florentino and Dr. Sloan at bedside for close monitoring following ROM Datetime: 10/26/2020 07:12 Epidural Procedure Other: Pump Started Datetime: 10/26/2020 07:09 Epidural Procedure: Test Dose Datetime: 10/26/2020 06:48 Anesthesia Comments: C. Castaneda Datetime: 10/26/2020 06:30 Actions for Decelerations: Side to Side Vibroacoustic Stim: Datetime: 10/26/2020 06:15 Pain Coping: Requesting Pain Medication or Epidural Datetime: 10/26/2020 06:08 Pain Relief Measures: SUPERVISOR GRIPS Use Datetime: 10/26/2020 05:02 Anesthesia Level Check: T9 Datetime: 10/26/2020 04:51 MATERNAL ASSESSMENT Level of Consciousness: Alert DTR's/Clonus: DTRs 2+; No Clonus Headache: Denies Breath Sounds, Left: Clear and Equal Breath Sounds, Right: Clear and Equal Nausea/Vomiting: Denies RUQ Epigastric Pain: Denies Datetime: 10/26/2020 03:00 MEDICATIONS Pitocin (milliunits): Increased to @ 2 Datetime: 10/26/2020 01:28 Pain Assessment Comments: side to side; fork truck driver button use Comfort Measures: Breathing/Relaxation Datetime: 10/25/2020 23:56 PATIENT CARE IV/Blood Work: New IV Bag Hung Datetime: 10/25/2020 23:47 Pitocin Checklist: At Least 1 Acceleration of 15 bpm x 15 Seconds in 30 Minutes or Adequate Variabi lity; No More than 1 Late Deceleration Occurred in Past 30 Minutes; No More than 2 Variable Decelerat ions > 60 Seconds in Duration and decreasing >60 bpm in 30 minutes; No More than 5 Uterine Contractio ns in 10 Minutes for any 20 Minute Interval; Uterus Palpates Soft between Contractions Datetime: 10/25/2020 21:37 Monitor Interventions for UA: [place] Adjusted Datetime: 10/25/2020 20:54 I/O Interventions: Crowder Cath Inserted Datetime: 10/25/2020 19:33 ANESTHESIA Epidural Positioning: Sitting Datetime: 10/25/2020 19:28 PROCEDURE TIME OUT Procedure Verify: Correct Patient Identity; Correct Side and Site are Marked; Accurate Procedure Co nsent Form; Agreement on Procedure to be Done; Correct Patient Position; Addressed Need to Administer Antibiotics or Fluids for Irrigation Datetime: 10/25/2020 19:00 Oxygen Method: Room Air Datetime: 10/25/2020 15:17 Cervical Ripening Agents: Cytotec @
== END 2020-10-27 14:15 | disposition home or self-care (01) | DRG 807 ==
LOC: WFO 07:47 → FBP 07:52 → WFO 09:09 → FBP 09:10 → OBSVTOIN 19:48 → FBP 10-26 15:09
PROVIDERS: ADMIT Advanced Practice Midwife; ATTEND Advanced Practice Midwife
PROC: 10907ZC Drainage of Amniotic Fluid, Therapeutic from Products of Conception, Via Natural or Artificial Opening (ICD-10-PCS; principal; 2020-10-26)
PROC: 10E0XZZ Delivery of Products of Conception, External Approach (ICD-10-PCS; 2020-10-26)
PROC: 0UQMXZZ Repair Vulva, External Approach (ICD-10-PCS; 2020-10-26)
DX: O40.3XX0 Polyhydramnios, third trimester, not applicable or unspecified (principal); Z37.0 Single live birth; O70.0 First degree perineal laceration during delivery; O36.63X0 Maternal care for excessive fetal growth, third trimester, not applicable or unspecified; Z3A.39 39 weeks gestation of pregnancy
CPT/HCPCS: 36415; 85025; 86850; 86900; 86901; 86920; A9270; J7120

== ENCOUNTER 2021-01-04 10:08 | Outpatient (CLI) | payer OTHER | END 2021-01-04 23:59 | disposition home or self-care (01) | LOC: LAB.N 10:08 | PROVIDERS: ATTEND Emergency Medicine | DX: R07.0 Pain in throat (principal); Z20.822 Contact with and (suspected) exposure to COVID-19 | CPT/HCPCS: 87070 ==

== ENCOUNTER 2022-05-24 09:38 | Emergency (ER) | payer OTHER ==
[2022-05-24] MEDS ORDERED: ONDANSETRON 4 MG/2 ML VIAL IVP STA (10:15)
[2022-05-24] MEDS ORDERED: SODIUM CHLORIDE 0.9% 1,000 ML IV STA (10:15)
[2022-05-24 10:17] LABS: BASOPHILS % (AUTO) 0.2 %; EOSINOPHILS % (AUTO) 0.1 %; HCT - HEMATOCRIT 42.4 % (37.0-47.0); HGB - HEMOGLOBIN 13.9 g/dL (12.0-16.0); LYMPHOCYTES # (AUTO) 0.4 10^3/uL (1.5-3.5); LYMPHOCYTES % (AUTO) 3.9 %; MEAN CORPUSCULAR HEMOGLOBIN 28.7 pg (27.0-31.0); MEAN CORPUSCULAR HGB CONC 32.8 g/dL (32.0-36.0); MEAN CORPUSCULAR VOLUME 87.4 fL (81.0-99.0); MEAN PLATELET VOLUME 10.2 fL (7.9-10.8); MONOCYTES # (AUTO) 0.4 10^3/uL (0.0-1.0); MONOCYTES % (AUTO) 3.2 %; NEUTROPHILS # (AUTO) 10.3 10^3/uL (1.5-6.6); NEUTROPHILS % (AUTO) 92.3 %; PLT - PLATELET COUNT 311 10^3/uL (130-450); RED BLOOD COUNT 4.85 10^6/uL (4.20-5.40); RED CELL DISTRIBUTION WIDTH 12.5 % (12.0-15.0); WHITE BLOOD COUNT 11.1 x10^3/uL (4.8-10.8)
[2022-05-24 10:32] LABS: ALBUMIN 4.8 g/dL (3.2-5.5); ALBUMIN/GLOBULIN RATIO 1.4 (1.0-2.2); CALCIUM 9.5 mg/dL (8.5-10.3); CREATININE 0.5 mg/dL (0.4-1.0); POTASSIUM 3.8 mmol/L (3.5-5.0); TOTAL PROTEIN 8.3 g/dL (6.7-8.2)
[2022-05-24 11:06] LABS: BILIRUBIN,URINE NEGATIVE (NEGATIVE); GLUCOSE, URINE (UA) NEGATIVE (NEGATIVE); KETONES,URINE (UA) TRACE mg/dL (NEGATIVE); LEUKOCYTE ESTERASE, URINE NEGATIVE (NEGATIVE); NITRITE,URINE NEGATIVE (NEGATIVE); OCCULT BLOOD,URINE NEGATIVE (NEGATIVE); PH,URINE 8.5 PH (5.0-7.5); PROTEIN,URINE NEGATIVE (NEGATIVE); UROBILINOGEN,URINE 0.2 (NORMAL) E.U./dL (NORMAL)
[2022-05-24 11:08] LABS: CLARITY,URINE CLEAR (CLEAR); HCG UR QUAL NEGATIVE
--- NOTE | 2022-05-24 12:12 | ED Physician Documentation ---
History of Present Illness - Stated complaint Stated Complaint: N/V/D - Chief complaint Chief Complaint: General - History obtained from History obtained from: Patient - Additonal information Additional information: The patient comes to the emergency department chief complaint of vomiting and diarrhea. She states that started around 2:00 this morning and has continued on. She only had 1 episode of diarrhea but she has had multiple episodes of vomiting. She states she was feeling lightheaded at home and has young children decided to come in and get checked out. She has had some chills but no fevers. No urinary symptoms. No blood in her vomit. She states she is otherwise healthy. Review of Systems Ten Systems: 10 systems reviewed and negative Constitutional: reports: Reviewed and negative Eyes: reports: Reviewed and negative Ears: reports: Reviewed and negative Nose: reports: Reviewed and negative Throat: reports: Reviewed and negative Cardiac: reports: Reviewed and negative Respiratory: reports: Reviewed and negative GI: reports: Nausea, Vomiting, Diarrhea. denies: Abdominal Pain : reports: Reviewed and negative Skin: reports: Reviewed and negative Musculoskeletal: reports: Reviewed and negative Neurologic: reports: Reviewed and negative Psychiatric: reports: Reviewed and negative Endocrine: reports: Reviewed and negative Immunocompromised: reports: Reviewed and negative PD PAST MEDICAL HISTORY - Past Medical History Past Medical History: Yes Cardiovascular: None Respiratory: None Neuro: None Endocrine/Autoimmune: None GI: None FAGOT MAKER: None : None HEENT: None Musculoskeletal: None Derm: None - Past Surgical History Past Surgical History: No - Present Medications Home Medications: Ambulatory Orders Medication Instructions Recorded Confirmed Ondansetron Odt [Zofran] 4 mg TL Q6H PRN #10 tablet 05/24/22 Sertraline [Zoloft] 50 mg PO DAILY 05/24/22 05/24/22 - Allergies Allergies/Adverse Reactions: Allergies Allergy/AdvReac Type Severity Reaction Status Date / Time No Known Drug Allergies Allergy Verified 12/21/14 08:19 - Social History Does the pt smoke?: No Smoking Status: Never smoker Does the pt drink ETOH?: No Does the pt have substance abuse?: No - Immunizations Immunizations are current?: Yes - POLST Patient has POLST: No PD ED PE NORMAL - Vitals Vital signs reviewed: Yes - General General: Alert and oriented X 3, No acute distress, Well developed/nourished - HEENT HEENT: Atraumatic, PERRL, EOMI, Moist mucous membranes - Neck Neck: Supple, no meningeal sign - Cardiac Cardiac: RRR, No murmur, Strong equal pulses - Respiratory Respiratory: No respiratory distress, Clear bilaterally - Abdomen Abdomen: Soft, Non tender, Non distended - Derm Derm: Normal color, Warm and dry, No rash - Extremities Extremities: No deformity, No edema - Neuro Neuro: Alert and oriented X 3, Other (Grossly intact.) - Psych Psych: Normal mood, Normal affect Results - Vitals Vitals: Vital Signs - 24 hr 05/24/22 05/24/22 09:56 11:14 Temperature 36.3 C L Heart Rate 115 H 101 H Respiratory 18 19 Rate Blood Pressure 109/65 103/76 O2 Saturation 99 99 Oxygen O2 Source Room air - Labs Labs: Laboratory Tests 05/24/22 05/24/22 05/24/22 10:10 10:12 10:12 WBC 11.1 H RBC 4.85 Hgb 13.9 Hct 42.4 MCV 87.4 MCH 28.7 MCHC 32.8 RDW 12.5 Plt Count 311 MPV 10.2 Neut # (Auto) 10.3 H Lymph # (Auto) 0.4 L [place] # (Auto) 0.4 Eos # (Auto) 0.0 Baso # (Auto) 0.0 Absolute Nucleated RBC 0.00 Nucleated RBC % 0.0 Sodium 139 Potassium 3.8 Chloride 103 Carbon Dioxide 25 Anion Gap 11.0 BUN 14 Creatinine 0.5 Estimated GFR (MDRD) 144 Glucose 112 H Calcium 9.5 Total Bilirubin 1.0 AST 16 ALT 13 Alkaline Phosphatase 49 Total Protein 8.3 H Albumin 4.8 Globulin 3.5 Albumin/Globulin Ratio 1.4 Lipase 40 Urine Color YELLOW Urine Clarity CLEAR Urine pH 8.5 H Ur Specific [place] 1.015 Urine Protein NEGATIVE Urine Glucose (UA) NEGATIVE Urine Ketones TRACE Urine Occult Blood NEGATIVE Urine Nitrite NEGATIVE Urine Bilirubin NEGATIVE Urine Urobilinogen 0.2 (NORMAL) Ur Leukocyte Esterase NEGATIVE Ur Microscopic Review NOT INDICATED Urine Culture Comments NOT INDICATED Urine HCG, Qual NEGATIVE PD MEDICAL DECISION MAKING - ED course Complexity details: reviewed results, re-evaluated patient, considered differential, d/w patient ED course: The patient was treated with IV fluids and Zofran after which she felt much better. Her laboratory studies were unremarkable. We have discussed the need for making sure she gets plenty to drink, clear liquid ways, at home. I have sent a prescription for Zofran to the pharmacy of her choice. Departure - Departure Clinical Impression: Gastroenteritis Condition: Stable Instructions: ED Gastroenteritis Viral Prescriptions: Ondansetron Odt [Zofran] 4 mg TL Q6H PRN #10 tablet PRN Reason: Nausea / Vomiting Comments: Your labs look good. You most likely have one of the many viruses that are going around right now causing vomiting and diarrhea. In general, this kind of illness will pass on its own given time. Most important thing is that you get plenty of clear liquids to drink, especially water. A prescription for Zofran has been electronically transmitted to the [facility] pharmacy in [place] at your request. Please take the nausea medicine as needed until your stomach is feeling better. Once you have been able to tolerate clear liquids for 24 hours without vomiting, you may get begin to slowly progress your diet, starting with simple starches like Saltine crackers or Ramen noodles, and gradually becoming more complex as your stomach can handle it.
[2022-05-24 12:40] VITALS: BP 107/72
== END 2022-05-24 12:49 | disposition home or self-care (01) ==
LOC: ED 09:38
DX: K52.9 Noninfective gastroenteritis and colitis, unspecified (principal)
CPT/HCPCS: 36415; 80053; 81001; 81003; 81025; 83690; 85025; 87086; 96361; 96374; 99283